=== PATIENT | female | born 1995 | race Caucasian/White ===

== ENCOUNTER 2021-03-23 06:50 | Emergency (ER) | payer OTHER, MEDICAID, SELFPAY ==
[2021-03-23 07:07] VITALS: BP 128/62; PULSE 117; RESP 18; TEMP 37.3; O2SAT 99; BMI 25.0
--- NOTE | 2021-03-23 07:25 | DI.US.S_ITS ---
PROCEDURE: US OB <= 14 WEEKS FETUS INDICATIONS: LOW BACK PAIN OUTSIDE/PRIOR DATING DATA: Last menstrual period (LMP): 12/22/2020. LMP-based estimated date of delivery (LAURYN): 09/28/2021. First dating scan (date and location): 03/23/2021 Estimated date of delivery (LAURYN) from first dating scan: 09/26/2021. TECHNIQUE: Real-time scanning was performed of the fetus and maternal pelvic organs, with image documentation. Endovaginal scanning was also performed to better visualize the fetus and maternal ovaries. COMPARISON: None. FINDINGS: Single live intrauterine is identified with heart rate of 175 beats per minute. Placenta is posterior. No areas of subchorionic hemorrhage are identified. BPD: 2.1 cm 13 weeks 3 days HC: 8.1 cm 13 weeks 3 days FL: 1.0 cm 13 weeks 1 day Composite gestational age by today's exam: 13 weeks 2 days Ovaries are not visualized. IMPRESSION: 1. Single live intrauterine with ultrasound gestational age today of 13 weeks 2 days. 2. Recommend followup imaging at 20-22 weeks for dates and anatomy. We strive to produce accurate, complete, and clear reports of imaging services. To assist us in improving patient care, this report was composed using standard report templates and voice recognition software. Therefore, it may contain abnormal punctuation, insertions and/or omissions. Occasional wrong-word or sound-alike substitutions may occur. Though we review the report and make efforts to correct it, we do recommend that the report be read carefully in proper context to recognize any text inaccuracies. Dictated by: Susan Mccain M.D. on 03/23/2021 at 8:41 Approved by: Susan Mccain M.D. on 03/23/2021 at 8:43
[2021-03-23 07:30] LABS: COVID19 -Nasal RAPID Negative (Negative)
[2021-03-23] MEDS: SODIUM CHLORIDE 0.9% 1,000 ML 150 ML IV (07:41)
[2021-03-23] MEDS: HYDROMORPHONE 0.5 MG INJ IV (07:41)
[2021-03-23 07:43] LABS: Add Manual Diff / Slide Review NO; Basophils Absolute Auto 0 /uL (0-100); Basophils Percent Auto 0.3 % (0-2); Eosinophils Absolute Auto 0 /uL (0-450); Eosinophils Percent Auto 0.1 % (2-4); Hematocrit 36.5 % (36-46); Hemoglobin 12.5 g/dL (12.0-16.0); Lymphocytes Absolute Auto 200 /uL (1100-4500); Lymphocytes Percent Auto 1.8 % (25-40); Mean Corpuscular HGB Conc 34.4 % (30-36); Mean Corpuscular Hemoglobin 32.4 PG (26-34); Mean Corpuscular Volume 94.1 fL (80-100); Monocytes Absolute Auto 300 /uL (0-900); Monocytes Percent Auto 3.7 % (3-14); Neutrophils Absolute Auto 8700 /uL (1500-7000); Neutrophils Percent Auto 94.1 % (50-75); Platelet Count 311 X10^3/uL (150-400); Red Blood Cell Count 3.88 X10^6/uL (4.0-5.2); Red Cell Distribution Width 13.7 % (11.6-14.8); White Blood Cell Count 9.3 X10^3/uL (4.5-11.0)
[2021-03-23 07:53] LABS: Alanine Aminotransferase 18 IU/L (<35); Albumin 4.6 g/dL (3.5-5.0); Albumin Globulin Ratio 1.3 (1.0-2.8); Alkaline Phosphatase 50 U/L (38-126); Aspartate Aminotransferase 25 IU/L (14-36); BUN Creatinine Ratio 13.6 (6-22); Bilirubin Total 0.2 mg/dL (0.2-1.3); Blood Urea Nitrogen 6 mg/dL (7-17); Calcium 9.3 mg/dL (8.4-10.2); Carbon Dioxide 23 mmol/L (22-32); Chloride 103 mmol/L (98-107); Estimated Glomerular Filt Rate > 60.0 mL/min (>60); Globulin 3.5 g/dL (1.7-4.1); Glucose 96 mg/dL (70-100); HEMOLYSIS 23 (0-50); Potassium 3.8 mmol/L (3.4-5.1); Sodium 133 mmol/L (137-145); Total Protein 8.1 g/dL (6.3-8.2)
--- NOTE | 2021-03-23 08:23 | ED_ITS ---
HPI - Back Pain/Injury General Chief Complaint: Back Pain/Injury Stated Complaint: back pain/headache x5 hours Time Seen by Provider: 03/23/21 06:58 Source: patient History of Present Illness HPI Narrative: 25-year-old at 13 weeks gestational age with no other significant medical history was awoken in the middle of the night with severe which she initially describes as low back pain starting at approximately upper low back and radiating down into the pelvis and into both hips. Was significant enough that she was unable to get back to sleep. She describes no nausea, vomiting, diarrhea. She has had no fevers, no dysuria no flank pain. No vaginal dis charge or bleeding. She states that she did have an 8 week Ob ultrasound that confirmed an intrauterine . She is new to [facility] and is moving from [place]. She describes no headaches and no recent exposures to obvious known disease. Related Data Allergies Allergy/AdvReac Type Severity Reaction Status Date / Time No Known Drug Allergies Allergy Verified 03/23/21 07:28 Review of Systems Review of Systems Narrative: Remainder of complete review of systems is otherwise unremarkable except for that included in the HPI. Patient History Social History Smoking Status: Never smoker Smoking Status: Never smoker alcohol intake frequency: 0-2 drinks per day Substance Use Type: does not use Exam Narrative Exam Narrative: General: Healthy appearing, in moderate distress. Able to give a complete and c oherent history. Well-nourished well-developed HEENT: Moist mucous membranes, normal sclera with reactive pupils, Respiratory: Lungs are clear to auscultation, no wheezing no rales no rhonchi. Full and symmetrical air movement Cardiac: Regular rate and rhythm no murmurs no bruits Abdomen: Soft, minor tenderness suprapubic and left lower quadrant without any rebound or guarding. She has no flank pain Spine: She describes paraspinous tenderness or approximately T10-L2 with out corresponding physical exam findings Skin: Warm and dry, no rashes Neurologic: Grossly neurologically intact with no obvious asymmetries or abnormalities Extremities: No trauma, well perfused Psych: Cooperative, appropriate insight and affect Initial Vital Signs Initial Vital Signs: Vital Signs Temperature 99.1 F 03/23/21 07:07 Pulse Rate 117 H 03/23/21 07:07 Respiratory Rate 18 03/23/21 07:07 Blood Pressure 128/62 03/23/21 07:07 Pulse Oximetry 99 03/23/21 07:07 Course Orders Ordered: ED Orders 03/23/21 07:07 COVID19 -Nasal swab/Pre-Proc Stat 03/23/21 07:25 US OB <= 14 weeks fetus Stat 03/23/21 07:36 Complete Blood Count AUTO DIFF Stat Comprehensive Metabolic Panel Stat Hydromorphone HCl (Hydromorphone 0.5 Mg Inj) 0.5 mg IV Q15MIN PRN PRN Reason: Pain, Last Admin: 03/23/21 07:41 Dose: 0.5 mg Documented by: RAYMUNDO Sodium Chloride (Normal Saline 0.9%) 1,000 mls @ 150 mls/hr IV CONT JENIFER Last Admin: 03/23/21 07:41 Dose: 150 mls/hr Documented by: RAYMUNDO Discontinued Medications Acetaminophen (Acetaminophen 325 Mg Tablet) 975 mg PO NOW ONE Stop: 03/23/21 08:30 Last Admin: 03/23/21 08:39 Dose: 975 mg Documented by: RAYMUNDO Vital Signs Vital signs: Vital Signs - 8 hr 03/23/21 07:07 03/23/21 08:35 Temperature 99.1 F Pulse Rate 117 H 109 H Respiratory Rate 18 16 Blood Pressure 128/62 114/60 Pulse Oximetry 99 100 MDM - Back Pain/Injury Lab Data Lab results narrative: Negative urine dip, positive test Result diagrams: 03/23/21 07:36 03/23/21 07:36 Labs: Lab Results 03/23/21 03/23/21 03/23/21 Range/Units 07:07 07:36 07:36 WBC 9.3 (4.5-11.0) X10^3/uL RBC 3.88 L (4.0-5.2) X10^6/uL Hgb 12.5 (12.0-16.0) g/dL Hct 36.5 (36-46) % MCV 94.1 (80-100) fL MCH 32.4 (26-34) PG MCHC 34.4 (30-36) % RDW 13.7 (11.6-14.8) % Plt Count 311 (150-400) X10^3/uL Neut % (Auto) 94.1 H (50-75) % Lymph % (Auto) 1.8 L (25-40) % [place] % (Auto) 3.7 (3-14) % Eos % (Auto) 0.1 L (2-4) % Baso % (Auto) 0.3 (0-2) % Neut # (Auto) 8700 H (1189-3310) /uL Lymph # (Auto) 200 L (5963-7300) /uL [place] # (Auto) 300 (0-900) /uL Eos # (Auto) 0 (0-450) /uL Baso # (Auto) 0 (0-100) /uL Sodium 133 L (137-145) mmol/L Potassium 3.8 (3.4-5.1) mmol/L Chloride 103 (98-107) mmol/L Carbon Dioxide 23 (22-32) mmol/L BUN 6 L (7-17) mg/dL Creatinine 0.44 L (0.52-1.04) mg/dL Estimated GFR > 60.0 (>60) mL/min BUN/Creatinine Ratio 13.6 (6-22) Glucose 96 (70-100) mg/dL Calcium 9.3 (8.4-10.2) mg/dL Total Bilirubin 0.2 (0.2-1.3) mg/dL AST 25 (14-36) IU/L ALT 18 (<35) IU/L Alkaline Phosphatase 50 (38-126) U/L Total Protein 8.1 (6.3-8.2) g/dL Albumin 4.6 (3.5-5.0) g/dL Globulin 3.5 (1.7-4.1) g/dL Albumin/Globulin Ratio 1.3 (1.0-2.8) SARS-CoV-2 (PCR) Negative (Negative) Point of Care Testing Test Results Positive Urine Dip Bedside Urine Glucose Negative Bedside Urine Bilirubin - Negative Bedside Urine Ketone - Negative Urine Specific [place] 1.030 Bedside Urine Occult Blood - Negative Bedside Urine pH 5.5 Bedside Urine Protein - Negative Bedside Urine Urobilinogen - Negative Bedside Urine Nitrite - Negative Bedside Urine Leukocytes - Negative Esterase Imaging Data US - OB: Radiologist's Impression: FINDINGS:? ? Single live intrauterine is identified with heart rate of 175 beats per minute.? Placenta is posterior.? No areas of subchorionic hemorrhage are identified. ? BPD:? 2.1 cm 13 weeks 3 days HC:? 8.1 cm 13 weeks 3 days FL:? 1.0 cm 13 weeks 1 day ? Composite gestational age by today's exam:? 13 weeks 2 days ? Ovaries are not visualized. ? IMPRESSION:? ? 1. Single live intrauterine with ultrasound gestational age today of 13 weeks 2 days. ? 2. Recommend followup imaging at 20-22 weeks for dates and anatomy. ? We strive to produce accurate, complete, and clear reports of imaging services. To assist us in improving patient care, this report was composed using standard report templates and voice recognition software. Therefore, it may contain abnormal punctuation, insertions and/or omissions. Occasional wrong-word or sound-alike substitutions may occur. Though we review the report and make efforts to correct it, we do recommend that the report be read carefully in proper context to recognize any text inaccuracies. ? Dictated by: Susan Mccain M.D. on 03/23/2021 at 8:41 ? ? MDM Narrative Medical decision making narrative: 25-year-old with low back/pelvic pain acute onset nail of the night. No evidence of significant paraspinous muscle spasm, healthy intrauterine fetus with no subchorionic hemorrhage or suggestion of pelvic abnormality, labs are reassuring with no evidence infection, kidney stone or surgical abdomen. At this time it is unclear why she is having so much pain however with hydration, a single dose of half a mg of Dilaudid and oral Tylenol she is significantly i mproved. This point there are no life-threatening abnormalities appreciated and no acute Ob or gynecologic emergencies appreciated. Will encourage her to establish care with an OBGYN in [facility] and she is safe for home discharge Discharge Plan Departure Patient Disposition: Home Clinical Impression: Acute back pain Qualifiers: Back pain location: low back pain Back pain laterality: bilateral Sciatica presence: without sciatica Qualified Code(s): M54.50 - Low back pain, unspecified Qualifiers: Weeks of gestation: 13 weeks Qualified Code(s): Z3A.13 - 13 weeks gestation of Instructions: DI for Low Back Pain, DI for -- Discomforts and Remedies Activity Restrictions/Additional Instructions: Thank you for coming in today Your pain seems unusual and I am glad that it is gone at this point. I did not find any life-threatening explanations. There is no evidence of kidney stones, bladder infection, infections in your abdomen and your baby is perfectly placed and growing nicely inside your uterus with no obstetrical complications. Should the pain return, please feel free to use Tylenol I would encourage you to contact your new OB to set up an appointment in the near future. Welcome to [facility] and good luck with the rest of your
[2021-03-23 08:35] VITALS: BP 114/60; PULSE 109; RESP 16; O2SAT 100
[2021-03-23] MEDS: ACETAMINOPHEN 325 MG TABLET 975 MG PO (08:39)
[2021-03-23 10:20] VITALS: BP 104/60; PULSE 103; RESP 18; O2SAT 99
== END 2021-03-23 10:27 | disposition home or self-care (01) ==
PROVIDERS: Emergency Provider Emergency Medicine
DX: O26.891 Other specified pregnancy related conditions, first trimester (principal); M54.50 Low back pain, unspecified; Z3A.13 13 weeks gestation of pregnancy; Z20.822 Contact with and (suspected) exposure to COVID-19
CPT/HCPCS: 36415; 76801; 80053; 81003; 81025; 85025; 87635; 96361; 96374; 99284; C9803; J1170

== ENCOUNTER → 2021-05-18 14:27 | Outpatient (CLI) | payer OTHER, MEDICAID, SELFPAY | PROVIDERS: Referring Provider Nurse Practitioner Family; Visit Provider Nurse Practitioner Family | DX: N89.8 Other specified noninflammatory disorders of vagina (principal) | CPT/HCPCS: 81002; 87210 ==

== ENCOUNTER → 2021-06-25 10:59 | Outpatient (CLI) | payer OTHER, MEDICAID, SELFPAY ==
[2021-06-25 12:43] LABS: Hemoglobin 11.4 g/dL (12.0-16.0)
[2021-06-25 13:06] LABS: GTT (PREG) 1 Hour PP 50gm Dose 114 mg/dL (76-139)
== END ==
PROVIDERS: Referring Provider Obstetrics & Gynecology; Visit Provider Obstetrics & Gynecology
DX: Z34.82 Encounter for supervision of other normal pregnancy, second trimester (principal); Z3A.26 26 weeks gestation of pregnancy
CPT/HCPCS: 36415; 82950; 85014; 85018

== ENCOUNTER → 2021-07-06 13:02 | Outpatient (CLI) | payer OTHER, MEDICAID, SELFPAY | PROVIDERS: Visit Provider Student in an Organized Health Care Education/Training Program | DX: J02.9 Acute pharyngitis, unspecified (principal) | CPT/HCPCS: 87070; 87880 ==

== ENCOUNTER 2021-08-07 17:25 | Outpatient (CLI) | payer OTHER, MEDICAID, SELFPAY ==
--- NOTE | 2021-08-07 | DI.US.S_ITS ---
PROCEDURE: US OB LIMITED INDICATIONS: Third trimester bleeding; EFW/EGA, cervical length, placenta OUTSIDE/PRIOR DATING DATA: Last menstrual period (LMP): 12/22/2020 LMP-based estimated date of delivery (LAURYN): 09/28/2021 First dating scan (date and location): 03/23/2021 Estimated date of delivery (LAURYN) from first dating scan: 09/26/2021 The calculations are made using the study generated LAURYN of 09/26/2021. TECHNIQUE: Real-time scanning was performed of the fetus, with image documentation. Endovaginal scanning: Performed COMPARISON: [facility], US, US OB > 14 WEEKS COMPLETE ANATOMY, 05/20/2021, 13:03. FINDINGS: A single living intrauterine gestation is present. Presentation: Breech. Placenta: Placental position is right anterior without previa. Amniotic fluid index: 9.9 cm, normal range is 5-24 cm. Single deepest vertical pocket is 3.7 cm. heart rate: 155 beats per minute. Maternal cervical canal: 5 cm long. Normal lower limit is 2.5 cm. BPD: 8.4 cm, 33 weeks, 5 days. HC: 29.8 cm, 33 weeks, 0 day. AC: 26.9 cm, 31 weeks, 0 day. FL: 6.3 cm, 32 weeks, 4 days. Estimated gestational age from current study: 32 weeks, 4 days Estimated gestational age from initial scan: 32 weeks, 6 days Estimated weight is 1864 g and is at 16%. IMPRESSION: 1. Single live intrauterine gestation with fetus in breech presentation. heart rate is 155 beats per minute. Normal amount of amniotic fluid. Estimated weight is at 16%. 2. Placenta location is right anterior without previa or gross abruption. Dictated by: Marbin Asencio M.D. on 08/07/2021 at 18:45 Approved by: Marbin Asencio M.D. on 08/07/2021 at 18:48
[2021-08-07 19:08] LABS: Appearance Urine UA CLEAR; Bilirubin Urine UA NEGATIVE (NEGATIVE); Color Urine UA YELLOW; Glucose Urine UA NEGATIVE (Negative); Ketones Urine UA NEGATIVE (NEGATIVE); Leukocyte Esterase Urine UA TRACE (NEGATIVE); Nitrite Urine UA NEGATIVE (Negative); Occult Blood Urine UA NEGATIVE (Negative); Protein Urine UA NEGATIVE (Negative); Urobilinogen Urine UA 0.2 E.U./dL (0.2)
[2021-08-07 19:14] LABS: pH Urine UA 7.5 (4.5-8.0)
[2021-08-07 19:15] LABS: Bacteria Urine Few (2-10); Culture Indicated Urine Specimen Cultured; RBC Urine None Seen (0-5/HPF); Squamous Epithelial Cell Urine 1-5 /HPF (0-5/HPF); WBC Urine 1-5/HPF (0-5/HPF)
--- NOTE | 2021-08-07 19:26 | PM.OBTRLD ---
Visit Information Visit Information Date of evaluation: 08/07/21 Primary OB Provider: Erik Penaloza Reason for Evaluation: Yes other Comments/Additional reasons for admission: Mucosanguinous discharge twice earlier today. Infant active, no contractions but lots of pelvic pressure. Vital Signs Vital Signs: See OBIX. [facility] Medical History (Updated 08/07/21 @ 19:31 by Erik Penaloza MD) Asthma Chronic headaches Heart murmur Otitis media delivery Seasonal allergies Surgical History (Updated 06/16/21 @ 09:53 by Cosme Osborne) Disorder of both eustachian tubes History of tympanoplasty History of wisdom tooth extraction Family History (System 06/16/21 @ 09:53 by Cosme Osborne) Grandfather Myocardial infarction Unknown Hypothyroid Mother Hypertension Grandmother Diabetes mellitus Social History (System 06/16/21 @ 09:53 by Cosme Osborne) marital status: number of children: 1 household members: spouse, family (mother) and children lives independently: Yes housing: house (planning on moving to a house on own) pets and animals: No occupational status: employed current occupational exposures/hazards: No special holly needs: No seatbelt use: always water heater temp set < 120 deg: Yes (will check) working smoke detector in home: Yes fire extinguisher in home: Yes carbon monox detector in home: Yes firearms in home: No Smoking Status: Never smoker second hand exposure: No alcohol intake: former substance use type: does not use well-balanced diet: daily or most days daily servings fruits/ve-4 caffeine: Yes (200mg limit) Type(s) of exercise: walking Exam Const General: cooperative and comfortable Nutritional Appearance: average body habitus Orientation: alert and oriented x3 HENMT Head: normal to inspection, atraumatic and abrasion Ears: hearing grossly normal bilaterally Face and sinus: face symmetric Eyes General: appearance normal, both eyes and all related structures Conjunctivae: conjunctivae normal Sclera: sclerae normal EOM: EOM intact bilaterally Neck Neck: normal visual inspection Resp Effort & Inspection: normal respiratory effort and able to speak in complete sentences Auscultation: clear to auscultation bilaterally Cardio Rate: regular rate Rhythm: regular rhythm Heart Sounds: S1 normal, S2 normal and no murmurs GI Inspection: normal to inspection and incision (Surgical dressings clean and dry) Palpation: soft, no hepatosplenomegaly and tender (Mild, diffuse postsurgical tenderness) External Female Exam: other (No bleeding noted) Uterus Location (Fundal Height): 33 Presentation: double footling breech Other: OB US: INDICATIONS:? Third trimester bleeding; EFW/EGA, cervical length, placenta ? OUTSIDE/PRIOR DATING DATA:? Last menstrual period (LMP):? 12/22/2020 LMP-based estimated date of delivery (LAURYN):? 09/28/2021 First dating scan (date and location):? 03/23/2021 Estimated date of delivery (LAURYN) from first dating scan:? 09/26/2021 The calculations are made using the study generated LAURYN of 09/26/2021. ? TECHNIQUE: Real-time scanning was performed of the fetus, with image documentation.? Endovaginal scanning:? Performed ? COMPARISON:? [facility], US, US OB > 14 WEEKS COMPLETE ANATOMY, 05/20/2021, 13:03. ? FINDINGS:? A single living intrauterine gestation is present.? Presentation:? Breech. Placenta:? Placental position is right anterior without previa.? Amniotic fluid index:? 9.9 cm, normal range is 5-24 cm. Single deepest vertical pocket is 3.7 cm.? ? heart rate:? 155 beats per minute.? Maternal cervical canal:? 5 cm long.? Normal lower limit is 2.5 cm.? ? BPD:? 8.4 cm, 33 weeks, 5 days. HC:? 29.8 cm, 33 weeks, 0 day. AC:? 26.9 cm, 31 weeks, 0 day. FL:? 6.3 cm, 32 weeks, 4 days. ? Estimated gestational age from current study:? 32 weeks, 4 days Estimated gestational age from initial scan:? 32 weeks, 6 days ? Estimated weight is 1864 g and is at 16%. ?? IMPRESSION:? 1. Single live intrauterine gestation with fetus in breech presentation.? heart rate is 155 beats per minute.? Normal amount of amniotic fluid.? Estimated weight is at 16%. 2.? Placenta location is right anterior without previa or gross abruption. Extrem General: no calf tenderness Psych Appearance: grossly normal Mental Status: mental status grossly normal Speech and Movement: speech and movement normal Mood: congruent mood Affect: normal affect Attitude: cooperative Thought Process: normal Thought Content: normal Judgment: judgment good Objective Labs Labs: Laboratory Results - last 24 hr 08/07/21 18:52 Urine Color Yellow Urine Appearance Clear Urine pH 7.5 Ur Specific [place] 1.010 Urine Protein Negative Urine Glucose (UA) Negative Urine Ketones Negative Urine Occult Blood Negative Urine Nitrate Negative Urine Bilirubin Negative Urine Urobilinogen 0.2 Ur Leukocyte Esterase Trace H Urine RBC None seen Urine WBC 1-5/hpf Ur Squamous Epith Cells 1-5 /hpf Urine Bacteria Few (2-10) H Ur Culture Indicated? Specimen cultured Diagnosis, Plan/Disposition Final Diagnosis (1) Third trimester bleeding: Status: Acute (2) Breech presentation, double footling: Status: Acute Plan/Disposition Plan: Suspect her change in cervical mucus and light bleeding is due to her double footling breech infant LE extension/activity. Patient discharged with precautionary counselling and standard limitation of activities. OB Disposition: home
== END 2021-08-07 19:28 | disposition home or self-care (01) ==
LOC: OB 08-10 16:03
PROVIDERS: Referring Provider Obstetrics & Gynecology; Visit Provider Obstetrics & Gynecology
DX: O46.93 Antepartum hemorrhage, unspecified, third trimester (principal); O32.8XX0 Maternal care for other malpresentation of fetus, not applicable or unspecified; Z3A.32 32 weeks gestation of pregnancy
CPT/HCPCS: 59025; 59050; 76815; 76817; 81001; 87086; G0378; G0379

== ENCOUNTER → 2021-09-02 08:49 | Outpatient (CLI) | payer OTHER, MEDICAID, SELFPAY ==
[2021-09-03 13:21] LABS: Strep Grp B PCR NEG for Grp B Strep
== END ==
PROVIDERS: Visit Provider Obstetrics & Gynecology
DX: Z34.83 Encounter for supervision of other normal pregnancy, third trimester (principal); Z3A.36 36 weeks gestation of pregnancy
CPT/HCPCS: 87653

== ENCOUNTER 2021-09-08 16:39 | Outpatient (CLI) | payer OTHER, MEDICAID, SELFPAY | END 2021-09-08 17:34 | disposition home or self-care (01) | LOC: OB 09-09 09:08 | PROVIDERS: Referring Provider Obstetrics & Gynecology; Visit Provider Obstetrics & Gynecology | DX: O36.8130 Decreased fetal movements, third trimester, not applicable or unspecified (principal); Z3A.37 37 weeks gestation of pregnancy | CPT/HCPCS: 59025; G0378; G0379 ==

== ENCOUNTER 2021-09-22 11:57 | Outpatient (CLI) | payer OTHER, MEDICAID, SELFPAY ==
--- NOTE | 2021-09-22 13:08 | PM.OBTRLD ---
Visit Information Visit Information Date of evaluation: 09/22/21 Primary OB Provider: Erik Penaloza Reason for Evaluation: Yes rule out labor Comments/Additional reasons for admission: Breech, scheduled for CS 09/24/2021; contractions [facility] Medical History Asthma Chronic headaches Heart murmur Otitis media delivery Seasonal allergies Surgical History Disorder of both eustachian tubes History of tympanoplasty History of wisdom tooth extraction Family History Grandfather Myocardial infarction Unknown Hypothyroid Mother Hypertension Grandmother Diabetes mellitus Social History (System 06/16/21 @ 09:53 by Cosme Osborne) marital status: number of children: 1 household members: spouse, family (mother) and children lives independently: Yes housing: house (planning on moving to a house on own) pets and animals: No occupational status: employed current occupational exposures/hazards: No special holly needs: No seatbelt use: always water heater temp set < 120 deg: Yes (will check) working smoke detector in home: Yes fire extinguisher in home: Yes carbon monox detector in home: Yes firearms in home: No Smoking Status: Never smoker second hand exposure: No alcohol intake: former substance use type: does not use well-balanced diet: daily or most days daily servings fruits/ve-4 caffeine: Yes (200mg limit) Type(s) of exercise: walking Exam HENPR Head: normal to inspection, normocephalic and atraumatic Eyes General: appearance normal, both eyes and all related structures Resp Effort & Inspection: normal respiratory effort and able to speak in complete sentences Auscultation: clear to auscultation bilaterally Cardio Rate: regular rate Rhythm: regular rhythm Heart Sounds: S1 normal, S2 normal and no murmurs GI Inspection: normal to inspection Palpation: soft and no hepatosplenomegaly Uterus Location (Fundal Height): 38 Presentation: juan luis breech Estimated Weight (lbs): 8 Extrem Right lower extremity: normal to inspection Evaluation Evaluation Baseline heart rate: 125 Variability: Moderate (11-25) monitor accelerations: Present Monitor Decelerations: Absent Contraction Frequency (minutes): 9 Uterine Contraction Intensity: Mild Category of Tracing: Reactive Status: Category l Diagnosis, Plan/Disposition Final Diagnosis (1) Breech presentation, double footling: Status: Acute (2) : Status: Acute Plan/Disposition Plan: PO oxycodone for LBP, bedrest, labor precautions OB Disposition: home
[2021-09-22] MEDS: OXYCODONE IR 10 MG TABLET PO (13:11)
== END 2021-09-22 13:16 | disposition home or self-care (01) ==
LOC: LABOR 13:07 → OB 09-23 09:22
PROVIDERS: Referring Provider Obstetrics & Gynecology; Visit Provider Obstetrics & Gynecology
DX: O32.8XX0 Maternal care for other malpresentation of fetus, not applicable or unspecified (principal); Z3A.39 39 weeks gestation of pregnancy
CPT/HCPCS: 59025; G0378; G0379

== ENCOUNTER 2021-09-24 05:32 | Inpatient (IN) | payer OTHER, MEDICAID, SELFPAY ==
--- NOTE | 2021-09-23 18:17 | PM.OBHP.1 ---
OB HPI Date/Time Date of admission: 09/24/21 Date Patient Seen: 09/24/21 Time Patient Seen: 07:15 History of Present Condition Chief complaint: INPT : 2 Para: 1 Estimated Date of Delivery: 09/28/21 Estimated Gestational Age (weeks): 39+3 Narrative: Megan Avila is a 25 year old LAURYN 09/28/2021 admitted now at 39+3 with breech presentation for primary section. Patient declined ECV attempt. PNC unremarkable. GBS negative. Indications Operative indications ( section): breech presentation History of Present care: good care Dating criteria: LMP confirmed by 1st trimester US Ultrasounds: normal 1st trimester US and normal mid trimester US Obstetrical complications: none Medical complications: none Preadmission Labs Blood type: O (+) positive -: Antibody screen: negative, GBS status: negative, HBsAG: negative, HIV: negative and RPR/VDLR: negative -: Chlamydia screen: not detected and Gonorrhea screen: not detected -: Rubella: immune and Varicella: immune HCAB: negative PAP: Normal Quad screen: Normal 1 hr GTT: 114 Prior (ies) History: x 2019 Evaluation Evaluation Baseline heart rate: 120 Variability: Average (6-10) monitor accelerations: Present Monitor Decelerations: Absent Contraction Frequency (minutes): 8 Uterine Contraction Intensity: Mild Category of Tracing: Reactive Status: Category l Comments: Breech presentation confirmed w/ bedside US. [facility] Medical History Asthma Chronic headaches Heart murmur Otitis media delivery Seasonal allergies Surgical History Disorder of both eustachian tubes History of tympanoplasty History of wisdom tooth extraction Family History Grandfather Myocardial infarction Unknown Hypothyroid Mother Hypertension Grandmother Diabetes mellitus Social History marital status: number of children: 1 household members: spouse, family (mother) and children lives independently: Yes housing: house (planning on moving to a house on own) pets and animals: No occupational status: employed current occupational exposures/hazards: No special holly needs: No seatbelt use: always water heater temp set < 120 deg: Yes (will check) working smoke detector in home: Yes fire extinguisher in home: Yes carbon monox detector in home: Yes firearms in home: No Smoking Status: Never smoker second hand exposure: No alcohol intake: former substance use type: does not use well-balanced diet: daily or most days daily servings fruits/ve-4 caffeine: Yes (200mg limit) Type(s) of exercise: walking Meds Home Medications and Allergies Home Medications Medication Instructions Recorded Confirmed Type cholecalciferol (vitamin D3) 250 250 mcg PO DAILY 06/15/21 09/24/21 History mcg (10,000 unit) capsule prenat.vits,mary,eal-ulqn-yhdyj 1 tab PO DAILY 06/15/21 09/24/21 History oxycodone 10 mg tablet 10 mg PO Q8H PRN pain #6 tabs 09/22/21 09/24/21 Rx Allergies Allergy/AdvReac Type Severity Reaction Status Date / Time No Known Drug Allergies Allergy Verified 08/05/21 14:28 Review of Systems Review of Systems Narrative: Problem-specific ROS positives included in HPI OB Exam HENMT Head: normal to inspection, normocephalic and atraumatic Eyes General: appearance normal, both eyes and all related structures Resp Effort & Inspection: normal respiratory effort and able to speak in complete sentences Auscultation: clear to auscultation bilaterally Cardio Rate: regular rate Rhythm: regular rhythm Heart Sounds: S1 normal, S2 normal and no murmurs Extremities Lower extremity: Yes normal to inspection GI Inspection: normal to inspection Palpation: Yes soft and Yes no hepatosplenomegaly Presentation: juan luis breech Estimated Weight (lbs): 8 Other: Breech presentation confirmed w/ bedside US Objective Labs Result Diagrams: 09/24/21 06:30 Assessment and Plan Assessment and Plan Assessment and Plan narrative: ASSESSMENT 1. Intrauterine gestation, Chand, breech, 39+ 3 weeks gestational age 2. Patient declines external cephalic version 3. GBS negative PLAN 1. Admit for primary LTC section 2. See orders
[2021-09-24 06:04] VITALS: BP 113/72
[2021-09-24 06:25] LABS: COVID19 -Nasal RAPID Negative (Negative)
[2021-09-24 06:56] LABS: Add Manual Diff / Slide Review NO; Basophils Absolute Auto 100 /uL (0-100); Basophils Percent Auto 0.6 % (0-2); Eosinophils Absolute Auto 0 /uL (0-450); Eosinophils Percent Auto 0.4 % (2-4); Hematocrit 35.9 % (36-46); Hemoglobin 11.9 g/dL (12.0-16.0); Lymphocytes Absolute Auto 1600 /uL (1100-4500); Lymphocytes Percent Auto 15.2 % (25-40); Mean Corpuscular HGB Conc 33.2 % (30-36); Mean Corpuscular Volume 93.2 fL (80-100); Monocytes Absolute Auto 900 /uL (0-900); Monocytes Percent Auto 8.6 % (3-14); Neutrophils Absolute Auto 7900 /uL (1500-7000); Neutrophils Percent Auto 75.2 % (50-75); Platelet Count 337 X10^3/uL (150-400); Red Blood Cell Count 3.86 X10^6/uL (4.0-5.2); Red Cell Distribution Width 14.2 % (11.6-14.8); White Blood Cell Count 10.5 X10^3/uL (4.5-11.0)
--- NOTE | 2021-09-24 07:53 | PM.PREOP ---
Pre-operative Note COVID-19 COVID-19 status: Negative Result date/Date tested (Pos, Neg/Pending): 09/24/21 Criteria for continued procedure: Non-surgical alternatives not available or appropriate per current SOC Interval Note History & Physical reviewed/Exam performed by Physician: Yes Changes to H&P: No
[2021-09-24] MEDS: LACTATED RINGERS 1,000 ML 100 ML IV (08:04)
[2021-09-24] MEDS: CEFAZOLIN 2 GM/20 ML SYRINGE IV (08:15)
--- NOTE | 2021-09-24 08:52 | SUR.OPER ---
Supine on Padded OR bed, head on pillow, safety belt at thigh, arms secured on padded arm boards at <90 degrees abduction. Bump under right buttock. Legs uncrossed with pillow under knees, gel pad to heels, tape over blanket to lower legs.
--- NOTE | 2021-09-24 08:52 | SUR.OPER ---
[place] placed with ease. Clear yellow urine visualized in tubing prior to balloon inflation. Secured to thigh prior to leaving OR.
--- NOTE | 2021-09-24 08:53 | SUR.OPER ---
Viable baby girl born at 0839. Placenta and cord blood sent with OB RN.
[2021-09-24 09:35] VITALS: BP 97/61; PULSE 72; RESP 16; TEMP 36.3; O2SAT 100
--- NOTE | 2021-09-24 09:38 | P.OP_ITS ---
Operative Date/Time/Diagnoses Date of procedure: 09/24/21 Time of procedure: 08:10 Pre-op diagnosis: Intrauterine gestation, 39+3 weeks EGA, double footling breech presentation Post-op diagnosis: same Procedure & Clinicians Procedure: Primary section (Low transverse cervical) Same procedure as scheduled: Yes Indications: Megan Avila is a 25 year old LAURYN 09/28/2021 admitted now at 39+3 with breech presentation for primary section.? Patient declined ECV attempt.? PNC unremarkable.? GBS negative. Surgeon: Erik Penaloza Informatics Educator: Robyn Riley Reason for Informatics Educator: Informatics Educator required for the safe, effective, and timely completion of this surgery. Anesthesia Type: Spinal Operative Notes Findings: Viable female BW 3425 gms (7 lb. 9 oz.), Apgars 8/9, delivered from the double footling breech presentation. Normal gravid anatomy. Closure Type: primary Specimen(s): cord blood Intraoperative meds administered: Ketorolac and Pitocin Applied: Catheter Estimated Blood Loss (mL): 700 Blood products transfused: none Procedure in detail: With her informed written consent, the patient was taken to the operating room and placed in the supine position for a primary section procedure, for the indication(s) above. The abdomen was prepped and draped in the usual manner for section and a pre-surgical timeout was taken per [facility] OR protocol. Once effective anesthesia was confirmed, a 15 cm transverse Pfannenstiel incision was made in the skin and taken down through the subcutaneous tissues to the deep fascia. The deep fascia was incised transversely, the rectus abdominal eyes bluntly and sharply, and the peritoneal cavity entered without difficulty. The lower uterine segment was visualized and the position/presentation palpated. A transverse incision at or above the vesicouterine reflection was made with Metzenbaum scissors and transverse hysterotomy performed near the midline. Amniotomy revealed clear fluid. The incision was extended bilaterally with digital traction and the infant was delivered without difficulty from the double footling breech present ation. The was vigorous and cord clamping delayed for 60 seconds. The placenta was delivered intact using gentle cord traction and fundal massage.The uterine cavity was then cleared of any clot/debris first with a sloppy wet lap tape followed by a dry lap tape. Ring forceps were then applied to the angles and the midline of the incised ZOILA. A primary closure of the uterus was then accomplished with #1 CCGS in a running interlocking stitch followed by a 2nd layer of #1 CCGS in a running interlocking imbricating stitch. No additional sutures were required to achieve complete hemostasis. Once pelvic hemostasis was assured, the anterior peritoneum was closed with a running 2-0 Vicryl suture and the fascia closed with #1 Vicryl in a running stitch initiated at both angles and tying separately near the midline. The subcutaneous tissues were reapproximated with 2-0 plain catgut suture using inverted interrupted stitches. The skin edges were then brought together with 4-0 Monocryl in a subcuticular closure and the incision was reinforced with one inch Steri-Strips. An appropriate compression dressing was applied and the patient transferred to PACU for recovery and subsequent transfer to the Center for recuperation. Complications: none [place] Baby 1: Gender: Female Presentation: breech Placental Delivery Description: Spontaneous and Expressed Cord Vessel Description: 3 Vessels Post-operative Condition: stable Disposition: PACU Aftercare: routine postop
[2021-09-24 09:40] VITALS: BP 98/61; PULSE 70; RESP 16; TEMP 36.3; O2SAT 100
[2021-09-24 09:47] VITALS: BP 95/61; PULSE 75; RESP 16; TEMP 36.3; O2SAT 100
[2021-09-24] MEDS: diphenhydrAMINE 50 MG/ML VIAL 25 MG IV (12:07)
[2021-09-24] MEDS: KETOROLAC 30 MG/ML VIAL IV ×2 (15:33→22:23)
[2021-09-24] MEDS: ACETAMINOPHEN 325 MG TABLET 650 MG PO ×2 (15:34→22:23)
[2021-09-25] MEDS: KETOROLAC 30 MG/ML VIAL IV (04:02)
[2021-09-25] MEDS: ACETAMINOPHEN 325 MG TABLET 650 MG PO ×3 (04:02→18:46)
[2021-09-25 06:39] LABS: Add Manual Diff / Slide Review NO; Basophils Absolute Auto 0 /uL (0-100); Basophils Percent Auto 0.3 % (0-2); Eosinophils Absolute Auto 0 /uL (0-450); Eosinophils Percent Auto 0.3 % (2-4); Hematocrit 33.4 % (36-46); Hemoglobin 11.2 g/dL (12.0-16.0); Lymphocytes Absolute Auto 1400 /uL (1100-4500); Lymphocytes Percent Auto 9.6 % (25-40); Mean Corpuscular HGB Conc 33.4 % (30-36); Mean Corpuscular Volume 92.9 fL (80-100); Monocytes Absolute Auto 1400 /uL (0-900); Neutrophils Absolute Auto 11300 /uL (1500-7000); Neutrophils Percent Auto 79.8 % (50-75); Platelet Count 330 X10^3/uL (150-400); Red Cell Distribution Width 14.1 % (11.6-14.8); White Blood Cell Count 14.1 X10^3/uL (4.5-11.0)
[2021-09-25] MEDS: DOCUSATE 100 MG CAPSULE 200 MG PO (08:58)
[2021-09-25] MEDS: IBUPROFEN 600 MG TABLET PO ×2 (12:54→18:45)
--- NOTE | 2021-09-25 15:17 | CM.SWNOTE ---
RECYCLE DRIVER Note RECYCLE DRIVER is informed of consult by colleague OTIS Hi. RECYCLE DRIVER calls center and is informed that patient's endorsed concern about housing stability. Patient is 25 y/o female who just gave to new born baby girl on 09/24/21 via . RECYCLE DRIVER enters room to meet with patient. Patient is sleeping so RECYCLE DRIVER meets with patient's spouse privately in hallway. RECYCLE DRIVER endorses role and inquires about the family's plan upon baby and patient's d/c. endorses that they currently have a home, they are renting a house but he stated earlier to staff that he is trying to get on affordable housing lists due to the family's tight budget. endorses that they receive food stamps and WIC. 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 states that he called [facility] authority earlier today and is trying to get on the wait list. RECYCLE DRIVER provides lists of several other housing wait lists, emergent housing locations and resources. endorses that patient and baby have a safe home to return to upon d/c. states that if they were in need of emergent housing they could access support from fellow anabaptist members, friends and family. apologizes for causing any concern and states that since the baby has been born he has been thinking about affordable housing and budgeting. It is the opinion of this RECYCLE DRIVER that patient and baby are safe to d/c to home when medically clear to do so. RECYCLE DRIVER reviews the above with L&D RNs who indicate understanding. Plan: Patient and baby to d/c to home when medically clear, states he will continue to reach out to affordable housing resources to continue watermaster housing search. Precious Lima, ACQUISITION ANALYST
[2021-09-25 17:11] VITALS: TEMP 36.4
[2021-09-25] MEDS: OXYCODONE IR 10 MG TABLET PO ×2 (17:11→21:22)
--- NOTE | 2021-09-25 22:18 | PM.OBPN.1 ---
Subjective - OB Subjective Patient comments: no complaints, pain well controlled and tolerating diet baby status: doing well and nursing well feeding status: exclusively breast feeding Date Patient Seen: 09/25/21 Time Patient Seen: 13:30 Interval history: POD #1 s/p primary c section Tolerating diet. Voided without the catheter. Bleeding tapering. BF going well. Pain well-controlled. Exam Vital Signs (past 8 hours): - 09/25/21 17:11 Temperature 97.6 F Oxygen Delivery Method Room Air Oxygen Flow Rate 100 Narrative Exam Narrative: Generally: Sitting up in bed, feeding , NAD Lungs: CTA bilat CV: RRR Fundus: Firm at U/-1 Incision: C/D/I with bandage Ext: Neg Santy's, trace edema Objective Labs Result Diagrams: 09/25/21 06:24 Labs: Laboratory Results - last 24 hr 09/25/21 06:24 WBC 14.1 H RBC 3.60 L Hgb 11.2 L Hct 33.4 L MCV 92.9 MCH 31.0 MCHC 33.4 RDW 14.1 Plt Count 330 Neut % (Auto) 79.8 H Lymph % (Auto) 9.6 L [place] % (Auto) 10.0 Eos % (Auto) 0.3 L Baso % (Auto) 0.3 Neut # (Auto) 05607 H Lymph # (Auto) 1400 [place] # (Auto) 1400 H Eos # (Auto) 0 Baso # (Auto) 0 Assessment & Plan Plan day: 1 plan OB: routine postop care Comments: Anticipate discharge 09/26/21 Time Spent With Patient Time: Total time spent is greater than 50% in coordination of care (as documented) at patient's floor/unit and/or counseling patient: Time with patient: 15-24 minutes
[2021-09-26] MEDS: IBUPROFEN 600 MG TABLET PO ×3 (00:38→13:01)
[2021-09-26] MEDS: ACETAMINOPHEN 325 MG TABLET 650 MG PO ×3 (00:38→13:01)
[2021-09-26] MEDS: OXYCODONE IR 10 MG TABLET PO (04:47)
[2021-09-26 07:49] VITALS: BP 105/56; PULSE 76; RESP 17; TEMP 36.4
[2021-09-26] MEDS: DOCUSATE 100 MG CAPSULE 200 MG PO (08:24)
--- NOTE | 2021-09-26 11:35 | PM.OBDS.1 ---
Discharge Providers Provider Date of admission: 09/24/21 05:32 Discharge Date: 09/26/21 Primary care physician: Doctor Afia MD Consults: 09/24/21 10:33 Consult to Utility System Repairer Routine Comment: Discharge provider: Robyn Riley MD Summary Hospital Course Date Patient Seen: 09/26/21 Time Patient Seen: 08:30 Diagnoses: 39-3/7 weeks gestation Primary section Persistent breech presentation Hospital Course: Patient is a 25-year-old 2 para 2 presented on September 24, 2021 for a scheduled primary section due to persistent breech presentation. She underwent this procedure without complication. Her postoperative course was unremarkable. Her catheter was removed on postop day # 1. She was able to void without the catheter. No nausea or vomiting. Bleeding is tapering. is going well. She is tolerating a diet. She is ambulating without assistance. Her pain is well controlled. She is discharged home with an Aquacel dressing in place to follow-up on Friday October 01, 2021 for removal. Peripartum Data Infant Delivery Method: Section Laceration Description: None Episiotomy description: None Procedures: Spinal anesthesia Primary low-transverse section complications: none 1: Gender: Female Disposition of : home Status at Discharge Cognitive/behavioral status at discharge: oriented Functional status at discharge: independent ambulation Overall status at discharge: patient is progressing back to baseline Time Spent with Patient Time attestation: Total time spent providing and/or coordinating discharge services: Time spent: Less than 30 minutes Specific discharge activities: Postoperative instructions reviewed instructions reviewed Objective Labs Result Diagrams: 09/25/21 06:24 Exam Vital Signs (past 8 hours): - 09/26/21 07:49 Temperature 97.5 F L Pulse Rate 76 Respiratory Rate 17 Blood Pressure 105/56 L Oxygen Delivery Method Room Air Oxygen Flow Rate 100 Narrative Exam Narrative: Generally: Patient is sitting up in chair, nursing , no acute distress Lungs: Clear to auscultation bilaterally Cardiovascular: Regular rate and rhythm Fundus: Firm at U -1 Incision: Clean dry and intact with Elastoplast. Extremities: Trace edema, negative [place] Discharge Plan Discharge Plan Patient Disposition: Home Provider Discharge Comment: Call with fever, chills, redness or drainage around the incision, or bleeding vaginally more than a pad in an hour Ibuprofen 600 mg every 6 hours as needed for cramping Tylenol 650 mg every 6 hours as needed Stool softener as needed Discharge orders & Medications Prescriptions: New oxycodone 5 mg tablet 5 mg PO Q4H PRN (Reason: pain) Qty: 20 0RF ibuprofen [IBU] 600 mg tablet 600 mg PO QID PRN (Reason: cramping) Qty: 30 2RF Continued oxycodone 10 mg tablet 10 mg PO Q8H PRN (Reason: pain) Qty: 6 0RF prenat.vits,mary,[id number] Tablet 1 tab PO DAILY cholecalciferol (vitamin D3) 250 mcg (10,000 unit) capsule 250 mcg PO DAILY Follow up/Referrals: Erik Penaloza MD [Physician] - 10/02/21 4:00 pm Diet/Activity/Treatments Diet: Regular Activity: No heavy lifting, nothing more than baby. Skin/Wound/Dressing Care Report to your healthcare provider any signs of infection, such as:: chills, fever, increased pain, unusual drainage and unusual redness Dressing: Do not remove dressing Visit Report/Discharge Packet Instructions: DI for , DI for Prescription Opioid Use Stand Alone Forms: Discharge: Care Discharge Data Primary Care Provider: Miscellaneous,Doctor
[2021-09-26 13:01] VITALS: TEMP 36.4
== END 2021-09-26 13:05 | disposition home or self-care (01) | DRG 540 ==
PROVIDERS: Admitting Provider Obstetrics & Gynecology; Referring Provider Obstetrics & Gynecology; Visit Provider Obstetrics & Gynecology
PROC: 10D00Z1 Extraction of Products of Conception, Low, Open Approach (ICD-10-PCS; CPT 59514; principal; 2021-09-24 07:45)
DX: O32.8XX0 Maternal care for other malpresentation of fetus, not applicable or unspecified (principal); Z3A.39 39 weeks gestation of pregnancy; Z37.0 Single live birth; Z20.822 Contact with and (suspected) exposure to COVID-19
CPT/HCPCS: 36415; 59050; 59514; 85025; 86850; 86900; 86901; 87635; C9803; J0690; J1200; J1885; J2274; J2590

== ENCOUNTER → 2021-11-02 11:11 | Outpatient (CLI) | payer OTHER, MEDICAID, SELFPAY ==
[2021-11-02 13:06] LABS: Add Manual Diff / Slide Review NO; Basophils Absolute Auto 0 /uL (0-100); Basophils Percent Auto 0.6 % (0-2); Eosinophils Absolute Auto 0 /uL (0-450); Eosinophils Percent Auto 0.5 % (2-4); Hematocrit 37.6 % (36-46); Hemoglobin 12.7 g/dL (12.0-16.0); Lymphocytes Absolute Auto 1900 /uL (1100-4500); Lymphocytes Percent Auto 37.8 % (25-40); Mean Corpuscular HGB Conc 33.7 % (30-36); Mean Corpuscular Hemoglobin 30.9 PG (26-34); Mean Corpuscular Volume 91.7 fL (80-100); Monocytes Absolute Auto 500 /uL (0-900); Monocytes Percent Auto 8.9 % (3-14); Neutrophils Absolute Auto 2700 /uL (1500-7000); Neutrophils Percent Auto 52.2 % (50-75); Platelet Count 312 X10^3/uL (150-400); Red Cell Distribution Width 14.9 % (11.6-14.8); White Blood Cell Count 5.1 X10^3/uL (4.5-11.0)
[2021-11-02 13:24] LABS: Alanine Aminotransferase 22 IU/L (<35); Albumin 4.4 g/dL (3.5-5.0); Albumin Globulin Ratio 1.3 (1.0-2.8); Alkaline Phosphatase 72 U/L (38-126); Aspartate Aminotransferase 23 IU/L (14-36); BUN Creatinine Ratio 14.3 (6-22); Bilirubin Total 0.3 mg/dL (0.2-1.3); Blood Urea Nitrogen 9 mg/dL (7-17); Calcium 9.4 mg/dL (8.4-10.2); Carbon Dioxide 29 mmol/L (22-32); Chloride 102 mmol/L (98-107); Cholesterol 158 mg/dL (140-199); Estimated Glomerular Filt Rate > 60 mL/min (>60); Globulin 3.5 g/dL (1.7-4.1); Glucose 80 mg/dL (70-100); HDL Cholesterol 51 mg/dL (40-60); HEMOLYSIS < 15 (0-50); LDL Cholesterol Calculated 81 mg/dL (<100); Potassium 4.4 mmol/L (3.4-5.1); Sodium 139 mmol/L (137-145); Total Protein 7.9 g/dL (6.3-8.2); Triglycerides 132 mg/dL (35-150)
[2021-11-02 14:04] LABS: Appearance Urine UA CLEAR; Bilirubin Urine UA NEGATIVE (NEGATIVE); Color Urine UA YELLOW; Glucose Urine UA NEGATIVE (Negative); Ketones Urine UA NEGATIVE (NEGATIVE); Leukocyte Esterase Urine UA TRACE (NEGATIVE); Nitrite Urine UA NEGATIVE (Negative); Occult Blood Urine UA NEGATIVE (Negative); Protein Urine UA NEGATIVE (Negative); Specific Gravity Urine UA 1.015 (1.000-1.035); Urobilinogen Urine UA 0.2 E.U./dL (0.2)
[2021-11-02 14:07] LABS: TSH w/ Reflex to FT4 1.04 uIU/mL (0.47-4.68)
[2021-11-02 14:29] LABS: pH Urine UA 7.5 (4.5-8.0)
[2021-11-02 14:46] LABS: Bacteria Urine Few (2-10); Culture Indicated Urine Specimen Cultured; RBC Urine 0-1/HPF (0-5/HPF); Squamous Epithelial Cell Urine 1-5 /HPF (0-5/HPF); Transitional Epi Cells Urine 0-1/HPF (0-5/HPF); WBC Urine 0-1/HPF (0-5/HPF)
== END ==
PROVIDERS: Referring Provider Pediatrics; Visit Provider Pediatrics
DX: Z00.00 Encounter for general adult medical examination without abnormal findings (principal)
CPT/HCPCS: 36415; 80053; 80061; 81001; 84443; 85025; 87086